=== PATIENT | female | born 1940 | race Caucasian/White ===

== ENCOUNTER → 2016-09-27 | Outpatient (CLI) | payer MEDICARE, OTHER ==
[~2016-09-27] MED LIST: ALLEGRA PO; ANTIVERT PO; ASPIRIN PO; COLCRYS0.6 M2 PO; COREG PO; CRESTOR PO; DARVOCET-N 1001 TAB PO; FLONASE 0.05% N16 G1; FLONASE16 GM; KAPIDEX PO; LASIX PO; NORCO1 TAB 10/3 PO; NORVASC PO; VASOTEC PO; VITAMIN D 4001 UDTAB PO; ZYLOPRIM100 MG PO; ZYRTEC5 M4 PO; [UNRECOGNIZED DRUG - OTHER]
--- NOTE | ~2016-09-27 | BD1 ---
[facility] A Service of [facility] RADIOLOGY TEXT RESULTS PATIENT: JENNIFER IRBY LOCATION: [facility] : 44 UNIT #: [id number] AGE: [address]: Chasidy Glass MD SEX: F ORDER DR: [id number] [facility] [address] [place], [place] [address] [id number] O MR#: [id number] Acc #: [id number] NAME: JENNIFER IRBY : 1940 SEX: F STUDY DATE/TIME: 09/27/2016 11:24 UNIT: [facility] ROOM: STUDY DESCRIPTION: BD Dexa Bone Dens 1+ Site Attending Physician: Chasidy Glass M.D. Ordering Physician: Chasidy Glass M.D. Primary Care Physician: Daja Maddox M.D. MEDICAL IMAGING REPORT This report is preliminary unless electronic signature is present EXAM DXA scan 09/27/2016 HISTORY Vitamin D deficiency, status post menopause with no hormone replacement therapy. Osteopenia. Arthritis. Anticonvulsant therapy through 30 years. Smoking history for 28 years. Fracture of foot in last 10 years. FINDINGS Bone mineral density in the lumbar spine from L1-L4 was 1 g/cm2 which is 0.4 standard deviations below the mean when compared to the young adult reference population which is within the range of normal. This is 1.9 standard deviations above the mean when compared to the age-matched population. Bone mineral density in the left femoral neck was 0.742 g/cm2 which is 1 standard deviation below the mean when compared to the young adult reference population which is characteristic of osteopenia. This is 1.1 standard deviations above the mean when compared to the age-matched population. IMPRESSION Bone mineral density in the lumbar spine within the range of normal and within the left hip characteristic of osteopenia. Dictated by... Shin Quiñones M.D. THIS IS AN ELECTRONICALLY VERIFIED REPORT Shin Quiñones M.D. at 09/28/2016 7:35 AM RINKU/fanta TD: 09/27/2016 14:06 JOB #: [id number] [facility] A Service of [facility] RADIOLOGY TEXT RESULTS PATIENT: JENNIFER IRBY LOCATION: [facility] #: [id number] : 44 UNIT #: [id number] AGE: [address]: Chasidy Glass MD SEX: F ORDER DR: MEDICAL IMAGING REPORT COPY
== END | disposition home or self-care (01) ==
LOC: CWCC 10:58
DX: Z13.820 Encounter for screening for osteoporosis (principal); E55.9 Vitamin D deficiency, unspecified; M85.88 Other specified disorders of bone density and structure, other site
CPT/HCPCS: 77080

== ENCOUNTER → 2016-11-20 | Outpatient (CLI) | payer MEDICARE, OTHER ==
--- NOTE | ~2016-11-20 | MY11 ---
[facility] A Service of [facility] RADIOLOGY TEXT RESULTS PATIENT: JENNIFER IRBY LOCATION: [facility] : 42 UNIT #: [id number] AGE: [address]: Daja Maddox MD SEX: F ORDER DR: [id number] [place] [id number] O MR#: [id number] Acc #: [id number] NAME: JENNIFER IRBY : 1940 SEX: F STUDY DATE/TIME: 11/20/2016 9:33 UNIT: [facility] ROOM: STUDY DESCRIPTION: MY Mammogram Screening Dig Harsha Attending Physician: Daja Maddox M.D. Referring Physician: Daja Maddox M.D. Ordering Physician: Daja Maddox M.D. Primary Care Physician: Daja Maddox M.D. MEDICAL IMAGING REPORT This report is preliminary unless electronic signature is present. EXAM Bilateral Digital Screening Mammogram with CAD INDICATION Breast cancer screening. 76-year-old asymptomatic female with no personal or family history of breast cancer. COMPARISON 06/08/2014, 04/20/2013, 03/27/2011, 12/22/2009, 10/28/2008, 03/08/2006. FINDINGS The breasts are almost entirely fatty. No suspicious findings are present. IMPRESSION No mammographic evidence of malignancy. Annual screening mammography and clinical breast exam are recommended. A result letter will be sent to the patient. Patients over the age of 40 are entered into a reminder system with target due date for the next mammogram. BIRADS: 1 Negative Dictated by... Barry Lewis M.D. THIS IS AN ELECTRONICALLY VERIFIED REPORT Barry Lewis M.D. at 11/20/2016 5:31 PM NESSA/danelle [facility] A Service of [facility] RADIOLOGY TEXT RESULTS PATIENT: JENNIFER IRBY LOCATION: [facility] : 44 UNIT #: [id number] AGE: [address]: Daja Maddox MD SEX: F ORDER DR: TD: 11/20/2016 12:38 JOB #: [id number] MEDICAL IMAGING REPORT Page 1 of 1
== END | disposition home or self-care (01) ==
LOC: SMAM 09:08
DX: Z12.31 Encounter for screening mammogram for malignant neoplasm of breast (principal)
CPT/HCPCS: G0202

== ENCOUNTER → 2016-11-22 | Outpatient (CLI) | payer MEDICARE, OTHER ==
--- NOTE | ~2016-11-22 | US77 ---
[facility] A Service of [facility] & [facility] RADIOLOGY TEXT RESULTS PATIENT: JENNIFER IRBY LOCATION: [facility] : 44 UNIT #: [id number] AGE: [address]: Clay Bacon MD SEX: F ORDER DR: [id number] [address] [address] [id number] O MR#: [id number] Acc #: [id number] NAME: JENNIFER IRBY : 1940 SEX: F STUDY DATE/TIME: 11/22/2016 12:09 UNIT: [facility] ROOM: STUDY DESCRIPTION: US Kidney Bilateral Complete Attending Physician: Clay Bacon M.D. Referring Physician: Clay Bacon M.D. Ordering Physician: Clay Bacon M.D. Primary Care Physician: Daja Maddox M.D. MEDICAL IMAGING REPORT This report is preliminary unless electronic signature is present. EXAM Renal ultrasound 11/22/2016 HISTORY Chronic kidney disease stage 3 for 1 month. FINDINGS Right kidney measured 10.4 cm while left kidney measured 11 cm in longitudinal dimensions. There is no evidence of hydronephrosis or nephrolithiasis. There is a 2.5 cm cyst on the left kidney. No solid mass lesions are identified. There is normal renal cortical echogenicity. Images of the bladder are normal. IMPRESSION Left renal cyst. Otherwise negative renal ultrasound. Dictated by... Shin Quiñones M.D. THIS IS AN ELECTRONICALLY VERIFIED REPORT Shin Quiñones M.D. at 11/23/2016 7:56 AM KRT/to TD: 11/22/2016 17:57 JOB #: [id number] MEDICAL IMAGING REPORT Page 1 of 1
[2016-11-22 11:56] LABS: BASOPHIL# 0.1 X10e3 (0-0.3); BASOPHIL% 1.3 % (0-2.5); EOSINOPHIL# 0.1 X10e3 (0-0.7); EOSINOPHIL% 1.8 % (0.0-7.0); HEMATOCRIT 39.8 % (35.0-45.0); HEMOGLOBIN 13.2 gm/dL (12.0-16.0); LYMPHOCYTE# 1.5 X10e3 (1.0-3.5); LYMPHOCYTE% 18.8 % (17.0-45.0); MEAN CELL VOLUME 102.1 FL (83-96); MEAN CORPUSCULAR HGB CONC 33.3 g/dL (30-36); MONOCYTE# 0.7 X10e3 (0-1.0); MONOCYTE% 8.1 % (3.0-12.0); NEUTROPHIL# 5.8 X10e3 (1.5-7.1); PLATELET COUNT 191 X10e3 (140-420); RED CELL DISTRIBUTION WIDTH 15.1 % (11.0-15.5); WHITE BLOOD COUNT 8.2 X10e3 (4.0-10.5)
[2016-11-22 12:01] LABS: DIFF IND NO
[2016-11-22 12:09] LABS: ALBUMIN SERUM 4.1 g/dL (3.5-5.0); BILIRUBIN,TOTAL 0.4 mg/dL (0.2-2.0); BUN/CREATININE RATIO 18.88; CREATININE SERUM 0.9 mg/dL (0.6-1.4); POTASSIUM 4.3 mmol/L (3.5-5.1)
[2016-11-22 12:34] LABS: URINE APPEARANCE CLEAR; URINE BILIRUBIN NEG (NEG); URINE BLOOD NEG (NEG); URINE COLOR YELLOW; URINE GLUCOSE NEG (NORM); URINE KETONE NEG (NEG); URINE LEUKOCYTE ESTERASE NEG (NEG); URINE NITRATE NEG (NEG); URINE PH 6.5 (5-8); URINE PROTEIN NEG (NEG); URINE SPECIFIC GRAVITY <=1.005 (1.003-1.035); URINE UROBILINOGEN 0.2 MG/DL (NORM)
[2016-11-22 12:35] LABS: MICRO INDICATED? NO; URINE SOURCE CLEAN CATCH
[2016-11-22 15:06] LABS: CREATININE,RANDOM URINE 21 mg/dL; TOTAL PROTEIN,RANDOM URINE <10 mg/dl (<10)
== END | disposition home or self-care (01) ==
LOC: SLAB 11:16
PROVIDERS: Internal Medicine Nephrology
DX: N18.3 Chronic kidney disease, stage 3 (moderate) (principal); N28.1 Cyst of kidney, acquired
CPT/HCPCS: 36415; 76770; 76775; 80053; 81003; 82570; 84156; 85025